=== PATIENT | male | born 1970 | race Caucasian/White ===

== ENCOUNTER 2020-02-15 07:24 | Day surgery (SDC) | payer BC ==
[2020-02-11 12:53] VITALS: BMI 27.8
--- NOTE | 2020-02-11 13:25 | RAD REPORT ---
EXAM DESCRIPTION: Joseline Aceves And Orquidea (2 Views)02/11/2020 1:13 pm CLINICAL HISTORY: Preop for cardiac catheterization. Shortness of breath COMPARISON: None FINDINGS: The lungs appear clear of acute infiltrate. The heart is normal size IMPRESSION: No acute abnormalities displayed
[2020-02-11 13:36] LABS: Absolute Lymphocytes (CBC) 1.4 K/uL (0.7-4.9); Basophils % 0.5 % (0-1.3); Hematocrit 44.4 % (39.6-49.0); Lymphocytes % 24.2 % (15.3-44.8); MPV 7.1 fL (7.6-11.3)
[2020-02-11 13:45] LABS: Protime INR 0.91
[2020-02-11 13:49] LABS: Potassium 4.1 mmol/L (3.5-5.1)
[2020-02-15] MEDS ORDERED: NA CHLORIDE 0.9% 500 ML ONE (08:08)
[2020-02-15] MEDS ORDERED: NITROGLYCERIN 100 MCG/ML SYR (for cath lab use only) IV ONE (09:36)
[2020-02-15] MEDS ORDERED: MIDAZOLAM HCL 2 MG/2 ML INJ ONE ×2 (09:36→10:00)
[2020-02-15] MEDS ORDERED: FENTANYL CITR 100 MCG/2 ML ONE (09:36)
[2020-02-15] MEDS ORDERED: ATROPINE SULF 1 MG/10 ML SYR IV ONE (09:37)
[2020-02-15] MEDS ORDERED: NITROGLYCERIN/D5W 0 MG/0 ML BTL IV ONE (09:37)
[2020-02-15] MEDS ORDERED: NA CHLORIDE 0.9% 0 ML ONE (09:37)
[2020-02-15] MEDS ORDERED: HEPA 1000U/500MLS 1,000 UNIT/500 ML BAG IV ONE (09:38)
[2020-02-15 11:17] VITALS: TEMP 97.3
[2020-02-15 12:12] VITALS: O2SAT 100
[2020-02-15 12:55] VITALS: BP 117/78
--- NOTE | 2020-02-15 21:37 | OP ---
Date of Procedure: 02/15/2020 Surgeon: Casey Polo MD Line Helper: Enid Davila. Procedures: Left heart catheterization, selective coronary arteriogram. Indication: Chest pain, atypical, positive stress test, and history of coronary artery disease. The patient is a 49-year-old white male, has had a history of coronary artery disease status post distal RCA stent and OM stent in the past. Had positive stress test scheduled for an outpatient catheteriz ation today on 02/15/2020. Description Of Procedure: Brought to the optical laboratory technician as an outpatient, prepped and draped in the routin e sterile fashion. Given Versed and fentanyl for sedation. A 6-Yakut sheath was introduced into th e right common femoral artery successfully using the Seldinger technique and 10 cc of xylocaine. Ang iography there was normal. Angio-Seal was used to close the case. 6-Yakut catheters, left and righ t Jessica, were used to cannulate the left main and right main respectively. His left main was mercedes l, LAD was normal, and he had a patent OM stent. The circumflex was normal, was very dominant. The JR4 shows a nondominant RCA with a patent distal RCA stent. There was a 90% stenosis in a small RV b ranch that came out of the proximal RCA. Complications: There were no complications. Blood Loss: 5 mL. Postoperative Diagnosis: Moderate coronary artery disease. Anesthesia: Total conscious sedation was 30 minutes. Plan: To continue medical therapy. The patient will be at bedrest for 2 hours after the procedure. He will go home today. He will see me in the office in 2 weeks. Continue same regimen. BLANCA/VANESA Voice ID: [id number] Report ID: [id number]
== END 2020-02-15 12:30 | disposition home or self-care (01) ==
LOC: CCL 07:24
DX: I25.10 Atherosclerotic heart disease of native coronary artery without angina pectoris (principal); R07.89 Other chest pain; Z95.5 Presence of coronary angioplasty implant and graft
CPT/HCPCS: 36415; 71046; 80048; 85025; 85610; 85730; 93454; C1760; C1893; J0583; J1644; J2250; J3010; J7040